=== PATIENT | male | born 1980 | race Caucasian/White ===

== ENCOUNTER 2021-12-09 06:00 | Emergency (ER) | payer OTHER ==
--- NOTE | 2021-12-09 06:38 | ERPHSYRPT ---
- History of Present Illness Time Seen by Provider: 12/09/21 06:10 Source: patient Exam Limitations: no limitations Patient Subjective Stated Complaint: pt states he has pain in his lt foot near 1st digit. states no injury. thinks he may have gout. Triage Nursing Assessment: pt alert and oriented, answers questions approp. respirations nonlabored. pt ambulatory with limping gait noted. pedal pulse and cap refill wnl. Physician History: This a 41-year-old white male who states he has a history of gout although has never been officially diagnosed in his right ankle in the past as well as his left first toe. He thinks he is having another "attack" because of onset of pain of the left first toe late last night and worsening throughout the night. He denies any trauma to the area. Patient states that he does not want any x- ray performed. All the other prior x-rays have been negative. Occurred: this morning Quality: constant, aching, throbbing Severity of Pain-Max: moderate Severity of Pain-Current: moderate Lower Extremities Pain: 1st toe: left Modifying Factors: Improves With: movement Associated Symptoms: other (Hurts to bear weight) Allergies/Adverse Reactions: No Known Drug Allergies Allergy (Verified 12/09/21 06:26) Hx Tetanus, Diphtheria Vaccination/Date Given: No Hx Influenza Vaccination/Date Given: No Hx Pneumococcal Vaccination/Date Given: No Immunizations Up to Date: No Travel Risk - International Travel Have you traveled outside of the country in past 3 weeks: No - Coronavirus Screening Are you exhibiting any of the following symptoms?: No Close contact with a COVID-19 positive Pt in past 14-21 Days: No - Vaccine Status Have you recieved a Covid-19 vaccination: Yes 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: [employer] - Vaccination Dates Date of 2cond Vaccination (if applicable): 2020 - Review of Systems Constitutional: No Symptoms Eyes: No Symptoms Ears, Nose, & Throat: No Symptoms Respiratory: No Symptoms Cardiac: No Symptoms Abdominal/Gastrointestinal: No Symptoms Genitourinary Symptoms: No Symptoms Musculoskeletal: Joint Pain (Left first toe) Skin: No Symptoms Neurological: No Symptoms Psychological: No Symptoms Endocrine: No Symptoms Hematologic/Lymphatic: No Symptoms Immunological/Allergic: No Symptoms All Other Systems: Reviewed and Negative - Past Medical History Pertinent Past Medical History: Yes Neurological History: No Pertinent History ENT History: No Pertinent History Cardiac History: No Pertinent History Respiratory History: No Pertinent History Endocrine Medical History: No Pertinent History Musculoskeletal History: No Pertinent History GI Medical History: Hernia History: No Pertinent History Psycho-Social History: Depression Male Reproductive Disorders: No Pertinent History - Past Surgical History Past Surgical History: Yes Neuro Surgical History: No Pertinent History Cardiac: No Pertinent History Respiratory: No Pertinent History Gastrointestinal: Appendectomy, Hernia Repair Genitourinary: No Pertinent History Musculoskeletal: No Pertinent History Male Surgical History: No Pertinent History - Social History Smoking Status: Former smoker How long have you smoked: 10 years Exposure to second hand smoke: Yes Drug Use: none Patient Lives Alone: No - Nursing Vital Signs Nursing Vital Signs: Initial Vital Signs Temperature 97.6 F 12/09/21 06:08 Pulse Rate 71 12/09/21 06:08 Respiratory Rate 16 12/09/21 06:08 Blood Pressure 138/84 12/09/21 06:08 O2 Sat by Pulse Oximetry 99 12/09/21 06:08 Pain Scale Pain Intensity [Left Toe] 9 Pain Intensity 9 - Physical Exam General Appearance: no apparent distress, alert, anxiety Eyes, Ears, Nose, Throat Exam: normal ENT inspection, moist mucous membranes Neck Exam: normal inspection, non-tender, supple, full range of motion Cardiovascular/Respiratory Exam: chest non-tender, no respiratory distress Gastrointestinal/Abdominal Exam: non-tender Back Exam: normal inspection, normal range of motion, No CVA tenderness, No vertebral tenderness Hips Exam: bilateral: non-tender, normal inspection, normal range of motion, no evidence of injury Legs Exam: bilateral leg: non-tender, normal inspection, normal range of motion, no evidence of injury Knees Exam: bilateral knee: non-tender, normal inspection, normal range of motion, no evidence of injury Ankle Exam: bilateral ankle: non-tender, normal inspection, normal range of motion, no evidence of injury Foot Exam: right foot: non-tender, left foot: bone tenderness (Left first toe), pain (Left first toe), bilateral foot: normal inspection, normal range of motion, no evidence of injury Neuro/Tendon Exam: normal sensation, normal motor functions, normal tendon functions, responds to pain, no evidence tendon injury Mental Status Exam: alert, oriented x 3, cooperative Skin Exam: normal color, warm, dry SpO2 Interpretation: normal SpO2: 99 O2 Delivery: Room Air - Course Nursing assessment & vital signs reviewed: Yes Ordered Tests: Active Orders 24 hr Category Date Time Status Uric Acid Stat Lab 12/09/21 06:13 Completed Medication Summary Discontinued Medications Generic Name Dose Route Start Last Admin Trade Name Irena PRN Reason Stop Dose Admin Oxycodone/Acetaminophen 2 tab 12/09/21 06:55 Oxycodone Hcl/Apap 5 Mg/325 Mg Tablet PO 12/09/21 06:56 SENT HOME W/ PATIENT STA Lab/Rad Data: Laboratory Results 12/09/21 Range/Units 06:13 Uric Acid 6.8 (3.5-7.2) mg/dL - Departure Departure Disposition: Home Clinical Impression: Toe pain, left Condition: Stable Critical Care Time: No Referrals: ANT VERAS MD [Primary Care Provider] - Follow up/PCP as directed Additional Instructions: Take medication as prescribed with food. Follow-up with your primary care physician for further management. Prescriptions: Indomethacin 25 mg [Indocin 25 MG] 25 mg PO TID #21 cap
[2021-12-09] MEDS ORDERED: PERCOCET TABLET 5/325MG PO STA (06:55)
[2021-12-09] MEDS ORDERED: PERCOCET TABLET 5/325MG ONE (07:25)
[2021-12-09 07:34] VITALS: BP 119/83; PULSE 82; O2SAT 96
== END 2021-12-09 07:33 | disposition home or self-care (01) ==
LOC: ED 06:00
DX: M79.675 Pain in left toe(s) (principal)
CPT/HCPCS: 36415; 84550; 99282; A9270-GY

== ENCOUNTER 2022-02-18 18:14 | Emergency (ER) | payer OTHER ==
[2022-02-18] MEDS ORDERED: Zofran 4 MG/2 ML VIAL IV ONE (18:32)
[2022-02-18] MEDS ORDERED: SUBLIMAZE 100 MCG/2 ML IV ONE (18:32)
[2022-02-18] MEDS ORDERED: SUBLIMAZE 100 MCG/2 ML ONE (18:33)
[2022-02-18] MEDS ORDERED: Zofran 4 MG/2 ML VIAL ONE (18:33)
[2022-02-18 19:03] LABS: Absolute Neutrophil Ct (ANC) 10.57 x10^3/uL (1.4-6.9); Basophil (Absolute #) 0.04 x10^3/uL (0-0.4); Eosinophil % 0.1 % (0.00-5.0); Eosinophil (Absolute #) 0.01 x10^3/uL (0-0.5); Hemoglobin 16.1 g/dL (12.5-18.0); Lymphocytes % 8.1 % (24.0-44.0); Mean Cell Volume 94.2 fL (78-100); Mean Corpuscular Hemoglobin 34.5 pg (26-32); Mean Corpuscular Hgb Concent. 36.6 g/dL (32-36); Mean Platelet Volume 9.8 fL (7.5-11.0); Monocyte (Absolute #) 0.66 x10^3/uL (0.0-1.3); Monocytes % 5.3 % (0.0-12.0); Neutrophil % 85.3 % (36.0-66.0); Platelet Count 223 x10^3/uL (150-450); Red Blood Count 4.67 x10^6/uL (4.1-5.6); Red Cell Distribution Width 12.9 % (11.5-14.0); White Blood Count 12.4 x10^3/uL (4.0-10.5)
[2022-02-18 19:22] LABS: ALBUMIN 4.9 g/dL (3.5-5.0); ALKALINE PHOSPHATASE 62 U/L (38-126); AMYLASE 54 U/L (30-110); ANION GAP 19.3 MEQ/L (5-15); BLOOD UREA NITROGEN 11 mg/dL (9-20); CHLORIDE 99 mmol/L (98-107); Carbon Dioxide 22 mmol/L (22-30); Creatinine 1 0.84 mg/dL (0.66-1.25); EST GLOMERULAR FILTRATION RATE > 60.0 ML/MIN; ETHYL ALCOHOL 53 mg/dL (0-10); Glucose 122 mg/dL (74-106); LIPASE 75 U/L (23-300); Potassium 3.9 mmol/L (3.5-5.1); SGOT/AST 77 U/L (17-59); SGPT/ALT 52 U/L (0-50); SODIUM 136 mmol/L (137-145); Total Protein 7.8 g/dL (6.3-8.2)
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
[2022-02-18 19:29] LABS: INR 1.07 (0.8-3.0); PROTIME 11.3 SECONDS (9.4-12.5); PTT 24.6 SECONDS (25.1-36.5)
[2022-02-18] MEDS ORDERED: Hydromorphone 1 mg/ml Injection ONE ×2 (19:52→21:43)
[2022-02-18] MEDS ORDERED: Hydromorphone 1 mg/ml Injection IV ONE ×2 (19:52→21:42)
[2022-02-18 21:04] VITALS: BP 122/76; PULSE 86
[2022-02-18 21:49] VITALS: O2SAT 95
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
== END 2022-02-18 21:51 | disposition short-term general hospital (02) ==
LOC: ED 18:14
DX: S27.321A Contusion of lung, unilateral, initial encounter (principal); S22.42XA Multiple fractures of ribs, left side, initial encounter for closed fracture; V86.55XA Driver of 3- or 4- wheeled all-terrain vehicle (ATV) injured in nontraffic accident, initial encounter; Y92.007 Garden or yard of unspecified non-institutional (private) residence as the place of occurrence of the external cause; M54.6 Pain in thoracic spine; M25.512 Pain in left shoulder
CPT/HCPCS: 36415; 71260; 73030; 74177; 80053; 80307; 82150; 83690; 85025; 85610; 85730; 96374; 96375; 99285; J1170; J2405; J3010; G0480

== ENCOUNTER 2024-08-05 06:18 | Emergency (ER) | payer OTHER ==
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
[2024-08-05 06:47] VITALS: BP 137/91; PULSE 90; RESP 18; TEMP 97.7; O2SAT 100
[2024-08-05] MEDS: DELTASONE 20 MG PO ONE (06:49)
[2024-08-05] MEDS ORDERED: DELTASONE 20 MG ONE (06:49)
[2024-08-05] MEDS ORDERED: NORCO 5/325 MG ONE (06:54)
[2024-08-05] MEDS: NORCO 5/325 MG PO ONE (06:55)
== END 2024-08-05 07:00 | disposition home or self-care (01) ==
LOC: ED 06:18
DX: M10.9 Gout, unspecified (principal); M79.675 Pain in left toe(s); Z79.52 Long term (current) use of systemic steroids; Z79.899 Other long term (current) drug therapy
CPT/HCPCS: 99281; 99283; A9270-GY